=== PATIENT | male | born 1960 | race Caucasian/White ===

== ENCOUNTER 2019-03-27 11:41 | Day surgery (SDC) | payer OTHER ==
[2019-03-24 09:50] VITALS: BMI 26.4
[2019-03-27] MEDS ORDERED: MIDAZOLAM HCL 2 MG/2 ML SINGLE DOSE VIAL ONE (13:54)
[2019-03-27] MEDS ORDERED: KETOROLAC TROMETHAMINE 30 MG/1 ML VIAL ONE (14:18)
[2019-03-27 14:44] VITALS: TEMP 98.2
[2019-03-27 15:25] VITALS: BP 110/64; PULSE 54
--- NOTE | 2019-03-27 16:19 | OP ---
Operative Note - Note: Operative Date: 03/27/19 Pre-Operative Diagnosis: R renal stone Operation: Right ESWL Findings: 7 mm mid pole Right renal stone Post-Operative Diagnosis: Same as Pre-op Surgeon: Charli Leal Anesthesia: Fractional Estimated Blood Loss (mls): 0 Operative Report Dictated: Yes
--- NOTE | 2019-03-28 07:33 | OP ---
DATE OF OPERATION: 03/27/2019 PREOPERATIVE DIAGNOSIS: Right renal stone. POSTOPERATIVE DIAGNOSIS: Right renal stone. PROCEDURE: Right extracorporeal shock wave lithotripsy. ATTENDING: Jefry Meadows MD ANESTHESIA: Fractional. OPERATION WENT FOLLOWS: The patient was brought in the operating room, placed in supine position on the operating room table. Ultrasonography and fluoroscopy were performed. A 7-mm right mid pole stone was identified. At this point, anesthesia and preoperative antibiotics were administered. Shock wave lithotripsy was then started. Excellent fragmentation of the stone was noted under real time ultrasonography and fluoroscopy. There were no complications noted. The patient tolerated the procedure very well. JEFRY MEADOWS M.D. /[id number]
== END 2019-03-27 15:33 | disposition home or self-care (01) ==
LOC: JASU-SURG 11:41
PROVIDERS: ATTEND Urology
PROC: 0TF3XZZ Fragmentation in Right Kidney Pelvis, External Approach (ICD-10-PCS; principal; 2019-03-27 13:15)
DX: N20.0 Calculus of kidney (principal)
CPT/HCPCS: 82962

== ENCOUNTER 2023-01-11 04:09 | Day surgery (SDC) | payer OTHER ==
[2023-01-07 11:25] VITALS: BMI 27.0
[2023-01-11] MEDS ORDERED: MIDAZOLAM HCL 2 MG/2 ML SINGLE DOSE VIAL ONE (14:17)
[2023-01-11 14:59] VITALS: RESP 20
[2023-01-11 17:14] VITALS: BP 141/67; PULSE 54; TEMP 98
== END 2023-01-11 16:30 | disposition home or self-care (01) ==
LOC: JASU-SURG 04:09
PROVIDERS: ATTEND Urology
PROC: 0TF4XZZ Fragmentation in Left Kidney Pelvis, External Approach (ICD-10-PCS; principal; 2023-01-11 13:30)
DX: N20.0 Calculus of kidney (principal)